=== PATIENT | female | born 1975 | race African-American/Black ===

== ENCOUNTER 2018-08-27 09:28 | Emergency (ER) | payer SELFPAY ==
[~2018-08-27] VITALS: Ht 160 cm; Wt 86.2 kg
[2018-08-27 09:35] VITALS: BP 121/75
== END 2018-08-27 11:35 | disposition left against medical advice (07) ==
LOC: ER 09:39
DX: S50.862A Insect bite (nonvenomous) of left forearm, initial encounter (principal); W57.XXXA Bitten or stung by nonvenomous insect and other nonvenomous arthropods, initial encounter; Y93.89 Activity, other specified; Y99.8 Other external cause status; Y92.89 Other specified places as the place of occurrence of the external cause